=== PATIENT | male | born 1950 | race Caucasian/White ===

== ENCOUNTER → 2016-03-09 | Outpatient (CLI) | payer MEDICARE, MEDICAID ==
[~2016-03-09] MED LIST: ASPIRIN81 M1 PO; COUMADIN5 MG PO; DILTIAZEM CD120 MG PO; DIOVAN160 MG PO; DO NOT PROFILE T1 EA; HYDROCODONE BIT1 T11 PO; HYDRODIURIL25 MG PO; LANOXIN0.25 MG PO; LASIX40 MG PO; METOPROLOL SR100 MG PO; NEURONTIN300 MG PO; OYSTER SHELL C500 MG PO; POTASSIUM CHLO20 MEQ PO; XOPENEX HF0.045 MG/A INH
[2016-03-09 13:13] LABS: BASO # 0.1 10*3/uL (0.0-0.1); BASO % 1.2 % (0.0-1.0); EOS # 0.1 10*3/uL (0.0-0.4); EOS % 1.2 % (1.0-4.0); HEMATOCRIT 51.7 % (42.0-52.0); HEMOGLOBIN 17.3 g/dl (14.0-18.0); IG # 0.1 10*3/uL (0.0-0.1); LYMPH # 2.2 10*3/uL (1.3-4.4); LYMPH % 25.6 % (27.0-41.0); MEAN CELL VOLUME 94.2 fl (80.0-94.0); MEAN CORPUSCULAR HGB 31.5 pg (27.0-31.0); MEAN CORPUSCULAR HGB CONC 33.5 g/dl (33.0-37.0); MEAN PLATELET VOLUME 10.1 fl (9.6-12.3); MONO # 1.1 10*3/uL (0.1-1.0); MONO % 12.6 % (3.0-9.0); NEUT # 4.9 10*3/uL (2.3-7.9); NEUT % 57.8 % (47.0-73.0); PLATELET COUNT AUTOMATED 171 10*3/uL (130-400); RED BLOOD COUNT 5.49 10*6/uL (4.50-5.90); RED CELL DISTRI WIDTH 14.3 % (0-14.5); WHITE BLOOD COUNT 8.5 10*3/uL (4.8-10.8)
[2016-03-09 13:39] LABS: ALBUMIN 3.5 gm/dl (3.1-4.5); ALKALINE PHOSPHATASE 56 U/L (45-117); BILIRUBIN, TOTAL 0.5 mg/dl (0.2-1.0); BUN 8 mg/dl (7-24); CARBON DIOXIDE 31 mmol/L (21-32); CHLORIDE 101 mmol/L (98-107); EST GLOM FILT AFRICAN AMERICAN > 60 ml/min; GLUCOSE 105 mg/dL (65-99); POTASSIUM 4.6 mmol/L (3.5-5.1); SGOT/AST 15 IU/L (3-35); SGPT/ALT 27 U/L (12-78); SODIUM 139 mmol/L (136-145); TOTAL PROTEIN 7.2 gm/dL (6.4-8.2)
[2016-03-09 14:06] LABS: HEMOGLOBIN A1c 6.6 % (4.8-5.6)
== END | disposition home or self-care (01) ==
LOC: LAB 12:35 → US 13:30
PROVIDERS: Physician Assistant
DX: M25.562 Pain in left knee (principal); I87.8 Other specified disorders of veins; R73.9 Hyperglycemia, unspecified

== ENCOUNTER → 2016-12-24 | Outpatient (CLI) | payer MEDICARE, MEDICAID | END | disposition home or self-care (01) | LOC: RAD 17:09 | DX: R91.8 Other nonspecific abnormal finding of lung field (principal); J44.1 Chronic obstructive pulmonary disease with (acute) exacerbation ==

== ENCOUNTER → 2017-06-15 | Outpatient (CLI) | payer MEDICARE, MEDICAID | END | disposition home or self-care (01) | LOC: RAD 18:22 | DX: M17.0 Bilateral primary osteoarthritis of knee (principal); M25.552 Pain in left hip ==

== ENCOUNTER → 2017-11-10 | Outpatient (CLI) | payer MEDICARE, MEDICAID | END | disposition home or self-care (01) | LOC: RAD 14:18 | DX: M19.011 Primary osteoarthritis, right shoulder (principal) ==

== ENCOUNTER 2018-12-27 19:04 | Emergency (ER) | payer MEDICARE, MEDICAID ==
[~2018-12-27] VITALS: Ht 185.4 cm; Wt 127.0 kg
[2018-12-27 19:32] LABS: BASO # 0.1 10*3/uL (0.0-0.1); BASO % 0.8 % (0.0-1.0); EOS # 0.1 10*3/uL (0.0-0.4); EOS % 0.9 % (1.0-4.0); HEMATOCRIT 48.4 % (42.0-52.0); LYMPH # 1.6 10*3/uL (1.3-4.4); LYMPH % 14.2 % (27.0-41.0); MEAN CELL VOLUME 93.3 fl (80.0-94.0); MEAN CORPUSCULAR HGB 30.8 pg (27.0-31.0); MEAN CORPUSCULAR HGB CONC 33.1 g/dl (33.0-37.0); MEAN PLATELET VOLUME 9.9 fl (9.6-12.3); MONO # 1.3 10*3/uL (0.1-1.0); MONO % 11.1 % (3.0-9.0); NEUT # 8.2 10*3/uL (2.3-7.9); NEUT % 71.3 % (47.0-73.0); PLATELET COUNT AUTOMATED 260 10*3/uL (130-400); RED BLOOD COUNT 5.19 10*6/uL (4.50-5.90); RED CELL DISTRI WIDTH 14.8 % (0-14.5); WHITE BLOOD COUNT 11.4 10*3/uL (4.8-10.8)
[2018-12-27 19:43] LABS: ACT PARTIAL THROMBO TIME 27.8 SECONDS (20.0-32.1); INTERNATIONAL NORM RATIO 1.2 (2.0-3.5)
[2018-12-27 19:57] LABS: ALBUMIN 3.6 gm/dl (3.1-4.5); ALKALINE PHOSPHATASE 64 U/L (45-117); BUN 20 mg/dl (7-24); CHLORIDE 93 mmol/L (98-107); CREATININE 1.23 mg/dL (0.70-1.30); POTASSIUM 3.6 mmol/L (3.5-5.1); SGOT/AST 64 IU/L (3-35); SGPT/ALT 78 U/L (12-78); SODIUM 133 mmol/L (136-145)
[2018-12-27] MEDS ORDERED: AUGMENTIN 875875 MG PO (20:34)
== END 2018-12-27 20:40 | disposition home or self-care (01) ==
LOC: ED 19:04
PROVIDERS: Physician Assistant
DX: R04.0 Epistaxis (principal); I48.91 Unspecified atrial fibrillation; I10 Essential (primary) hypertension; F17.200 Nicotine dependence, unspecified, uncomplicated; Z79.899 Other long term (current) drug therapy; Z79.82 Long term (current) use of aspirin; Z79.01 Long term (current) use of anticoagulants

== ENCOUNTER 2019-03-08 19:22 | Emergency (ER) | payer MEDICARE, MEDICAID ==
[~2019-03-08] VITALS: Ht 185.4 cm; Wt 130.6 kg
[~2019-03-08 19:22] MED LIST changes: +AUGMENTIN 875875 MG PO; -COUMADIN5 MG PO; +Coumadin5 MG PO; -METOPROLOL SR100 MG PO; +METOPROLOL SUCC50 M2 PO
[2019-03-08] MEDS ORDERED: TOPIRAMATE25 M3 PO (19:35)
[2019-03-08] MEDS ORDERED: PRIMIDONE250 MG PO (19:38)
[2019-03-08 20:04] LABS: BASO # 0.1 10*3/uL (0.0-0.1); BASO % 0.7 % (0.0-1.0); EOS # 0.2 10*3/uL (0.0-0.4); EOS % 2.1 % (1.0-4.0); HEMATOCRIT 49.2 % (42.0-52.0); LYMPH # 1.8 10*3/uL (1.3-4.4); LYMPH % 18.4 % (27.0-41.0); MEAN CELL VOLUME 90.6 fl (80.0-94.0); MEAN CORPUSCULAR HGB 29.5 pg (27.0-31.0); MEAN CORPUSCULAR HGB CONC 32.5 g/dl (33.0-37.0); MEAN PLATELET VOLUME 10.5 fl (9.6-12.3); MONO # 0.9 10*3/uL (0.1-1.0); MONO % 8.7 % (3.0-9.0); NEUT # 6.9 10*3/uL (2.3-7.9); NEUT % 69.2 % (47.0-73.0); PLATELET COUNT AUTOMATED 249 10*3/uL (130-400); RED BLOOD COUNT 5.43 10*6/uL (4.50-5.90); RED CELL DISTRI WIDTH 15.2 % (0-14.5)
[2019-03-08 20:15] LABS: ACT PARTIAL THROMBO TIME 34.6 SECONDS (20.0-32.1); INTERNATIONAL NORM RATIO 1.5 (2.0-3.5)
[2019-03-08 20:25] LABS: ALBUMIN 3.5 gm/dl (3.1-4.5); ALKALINE PHOSPHATASE 84 U/L (45-117); BUN 22 mg/dl (7-24); CHLORIDE 95 mmol/L (98-107); CREATININE 1.27 mg/dL (0.70-1.30); FREE T4 0.99 ng/dl (0.76-1.46); POTASSIUM 3.3 mmol/L (3.5-5.1); SGOT/AST 21 IU/L (3-35); SGPT/ALT 40 U/L (12-78); SODIUM 136 mmol/L (136-145)
[2019-03-08 20:28] LABS: TROPONIN I < 0.015 ng/ml (<0.045)
[2019-03-08 21:52] LABS: BILIRUBIN NEGATIVE (NEGATIVE); BLOOD NEGATIVE (NEGATIVE); CLARITY CLEAR (CLEAR); COLOR YELLOW (YELLOW); GLUCOSE 2+ (NEGATIVE); KETONE NEGATIVE (NEGATIVE); LEUKO ESTERASE NEGATIVE (NEGATIVE); NITRITE NEGATIVE (NEGATIVE)
[2019-03-08 21:56] LABS: URINE AMPHETAMINES < 1000 (1000ng/ml); URINE BARBITURATES > 200 (200ng/ml); URINE BENZODIAZEPINES < 200 (200ng/ml); URINE CANNABINOIDS (THC) < 50 (50ng/ml); URINE COCAINE < 300 (300ng/ml); URINE METHADONE < 300 (300ng/ml); URINE OPIATES < 300 (300ng/ml)
[2019-03-08 21:59] LABS: BACTERIA TRACE; RBC 0-2 rbc/hpf (0-2)
[2019-03-08 22:00] LABS: URINE PHENCYCLIDINE < 25 (25ng/ml)
== END 2019-03-09 01:30 | disposition short-term general hospital (02) ==
LOC: ED 19:22
PROVIDERS: Emergency Medicine
DX: R41.82 Altered mental status, unspecified (principal); R53.1 Weakness; I10 Essential (primary) hypertension; F17.200 Nicotine dependence, unspecified, uncomplicated; Z79.899 Other long term (current) drug therapy; Z79.01 Long term (current) use of anticoagulants; Z79.82 Long term (current) use of aspirin

== ENCOUNTER → 2019-12-22 | Outpatient (CLI) | payer MEDICARE ==
[~2019-12-22] MED LIST changes: +PRIMIDONE250 MG PO; +TOPIRAMATE25 M3 PO
[2019-12-22 14:05] LABS: BASO # 0.1 10*3/uL (0.0-0.1); BASO % 1.1 % (0.0-1.0); EOS # 0.2 10*3/uL (0.0-0.4); EOS % 1.9 % (1.0-4.0); LYMPH # 2.3 10*3/uL (1.3-4.4); LYMPH % 22.1 % (27.0-41.0); MEAN CELL VOLUME 88.7 fl (80.0-94.0); MEAN CORPUSCULAR HGB 27.9 pg (27.0-31.0); MEAN CORPUSCULAR HGB CONC 31.5 g/dl (33.0-37.0); MEAN PLATELET VOLUME 9.9 fl (9.6-12.3); MONO # 1.3 10*3/uL (0.1-1.0); MONO % 12.2 % (3.0-9.0); NEUT # 6.4 10*3/uL (2.3-7.9); NEUT % 61.3 % (47.0-73.0); PLATELET COUNT AUTOMATED 230 10*3/uL (130-400); RED BLOOD COUNT 4.62 10*6/uL (4.50-5.90); RED CELL DISTRI WIDTH 15.9 % (0-14.5); WHITE BLOOD COUNT 10.4 10*3/uL (4.8-10.8)
[2019-12-22 14:10] LABS: BILIRUBIN Negative (Negative); BLOOD Negative (Negative); CLARITY Clear (Clear); COLOR Yellow (Yellow); GLUCOSE 3+ (Negative); KETONE Negative (Negative); LEUKO ESTERASE Negative (Negative); NITRITE Negative (Negative)
[2019-12-22 14:21] LABS: RBC 0-2 rbc/hpf (0-2); WBC 0-2 wbc/hpf (0-5)
[2019-12-22 14:26] LABS: ALBUMIN 3.6 gm/dl (3.1-4.5); CREATININE 1.45 mg/dL (0.70-1.30); POTASSIUM 3.8 mmol/L (3.5-5.1); TOTAL PROTEIN 7.9 gm/dL (6.4-8.2)
== END | disposition home or self-care (01) ==
LOC: LAB 12:53 → US 13:00
PROVIDERS: ATTEND Internal Medicine Nephrology
DX: N28.1 Cyst of kidney, acquired (principal); R63.4 Abnormal weight loss

== ENCOUNTER → 2020-04-30 | Outpatient (CLI) | payer MEDICARE ==
[2020-04-30 09:43] LABS: ALBUMIN 3.4 gm/dl (3.1-4.5); CREATININE 1.53 mg/dL (0.70-1.30); POTASSIUM 3.3 mmol/L (3.5-5.1); TOTAL PROTEIN 7.7 gm/dL (6.4-8.2)
== END | disposition home or self-care (01) ==
LOC: LAB 09:12
PROVIDERS: ATTEND Internal Medicine
DX: I48.91 Unspecified atrial fibrillation (principal)

== ENCOUNTER 2020-10-28 23:11 | Inpatient (IN) | payer MEDICARE ==
[~2020-10-28] VITALS: Ht 180.3 cm; Wt 107.6 kg
[2020-10-28 23:41] LABS: BASO % 0.1 % (0.0-1.0); EOS # 0.2 10*3/uL (0.0-0.4); EOS % 0.9 % (1.0-4.0); HEMATOCRIT 36.5 % (42.0-52.0); LYMPH # 0.5 10*3/uL (1.3-4.4); LYMPH % 2.2 % (27.0-41.0); MEAN CELL VOLUME 84.9 fl (80.0-94.0); MEAN CORPUSCULAR HGB 26.7 pg (27.0-31.0); MEAN CORPUSCULAR HGB CONC 31.5 g/dl (33.0-37.0); MEAN PLATELET VOLUME 9.9 fl (9.6-12.3); MONO # 1.5 10*3/uL (0.1-1.0); MONO % 7.2 % (3.0-9.0); NEUT # 18.1 10*3/uL (2.3-7.9); PLATELET COUNT AUTOMATED 326 10*3/uL (130-400); RED CELL DISTRI WIDTH 15.6 % (0-14.5); WHITE BLOOD COUNT 20.3 10*3/uL (4.8-10.8)
[2020-10-28 23:48] VITALS: BP 87/39
[2020-10-29 00:03] LABS: ALBUMIN 3.4 gm/dl (3.1-4.5); CREATININE 5.56 mg/dL (0.70-1.30); POTASSIUM 4.1 mmol/L (3.5-5.1); TOTAL PROTEIN 7.7 gm/dL (6.4-8.2)
[2020-10-29] MEDS ORDERED: GABAPENTIN400 MG PO (00:04)
[2020-10-29] MEDS ORDERED: ALDACTONE25 MG PO (00:04)
[2020-10-29] MEDS ORDERED: JARDIANCE25 MG PO (00:05)
[2020-10-29] MEDS ORDERED: DULOXETINE HCL30 MG PO (00:06)
[2020-10-29] MEDS ORDERED: DIGOXIN125 MCG PO (00:06)
[2020-10-29] MEDS ORDERED: TOPIRAMATE100 M2 PO (00:06)
[2020-10-29] MEDS ORDERED: OMEPRAZOLE40 MG PO (00:09)
[2020-10-29] MEDS ORDERED: ATORVASTATIN CA20 M1 PO (00:09)
[2020-10-29 00:10] VITALS: BP 104/46
[2020-10-29] MEDS ORDERED: JENTADUETO 2.51 EAC2 PO (00:10)
[2020-10-29 01:49] LABS: BILIRUBIN Negative (Negative); BLOOD 2+ (Negative); CLARITY Clear (Clear); COLOR Yellow (Yellow); GLUCOSE 2+ (Negative); KETONE Negative (Negative); LEUKO ESTERASE Negative (Negative); NITRITE Negative (Negative); SPECIFIC GRAVITY 1.015 (1.001-1.030); UROBILINOGEN 0.2 E.U./dl (0.0-1.0)
[2020-10-29 02:01] LABS: BACTERIA 2+; RBC 21-30 rbc/hpf (0-2)
[2020-10-29 03:00] VITALS: BP 122/56
[2020-10-29 04:38] LABS: HEMATOCRIT 34.7 % (42.0-52.0); MEAN CORPUSCULAR HGB 26.7 pg (27.0-31.0); MEAN CORPUSCULAR HGB CONC 31.4 g/dl (33.0-37.0); PLATELET COUNT AUTOMATED 286 10*3/uL (130-400); RED BLOOD COUNT 4.08 10*6/uL (4.50-5.90); RED CELL DISTRI WIDTH 15.5 % (0-14.5); WHITE BLOOD COUNT 17.4 10*3/uL (4.8-10.8)
[2020-10-29 04:51] LABS: ACT PARTIAL THROMBO TIME 47.8 SECONDS (20.0-32.1); INTERNATIONAL NORM RATIO 2.7 (2.0-3.5)
[2020-10-29 04:54] LABS: ALBUMIN 3.4 gm/dl (3.1-4.5); CREATININE 5.27 mg/dL (0.70-1.30); POTASSIUM 3.7 mmol/L (3.5-5.1); TOTAL PROTEIN 7.6 gm/dL (6.4-8.2)
[2020-10-29 05:01] LABS: THYROID STIM HORMONE (HS) 0.714 uIU/ml (0.358-4.75)
[2020-10-29] MEDS ORDERED: WARFARIN SOD5 MG PO (05:04)
[2020-10-29 05:39] LABS: ARTERIAL BLOOD GAS PH 7.33 (7.35-7.45)
[2020-10-29 05:40] LABS: ABG BASE EXCESS -8.5 mmol/L (-2.0-2.0)
[2020-10-29 05:58] VITALS: BP 105/66
[2020-10-29 06:51] VITALS: BP 95/62
[2020-10-29 07:24] LABS: PLATELET SUFFICIENCY NORMAL (NORMAL); TOTAL CELLS COUNTED 100 #CELLS
[2020-10-29 09:39] LABS: VITAMIN D, 25-HYDROXY 11.5 ng/mL (30-100)
[2020-10-29 10:42] LABS: ARTERIAL BLOOD GAS PH 7.386 (7.35-7.45)
[2020-10-29 10:44] LABS: ABG BASE EXCESS -7.5 mmol/L (-2.0-2.0)
[2020-10-29 13:29] LABS: URINE CREATININE RANDOM 52.4 mg/dL
[2020-10-29 13:50] LABS: ALBUMIN 3.3 gm/dl (3.1-4.5); POTASSIUM 2.9 mmol/L (3.5-5.1); TOTAL PROTEIN 7.7 gm/dL (6.4-8.2)
[2020-10-29 18:13] VITALS: BP 165/66
[2020-10-30] VITALS (7 sets, daily range): BP systolic 127–157; BP diastolic 57–85
[2020-10-30 01:20] LABS: CREATININE 2.77 mg/dL (0.70-1.30); POTASSIUM 3.6 mmol/L (3.5-5.1)
[2020-10-30 05:28] LABS: ALBUMIN 3.1 gm/dl (3.1-4.5); CREATININE 2.36 mg/dL (0.70-1.30); POTASSIUM 2.9 mmol/L (3.5-5.1); TOTAL PROTEIN 7.5 gm/dL (6.4-8.2)
[2020-10-30 06:19] LABS: BASO % 0.2 % (0.0-1.0); EOS % 0.1 % (1.0-4.0); HEMATOCRIT 33.3 % (42.0-52.0); LYMPH # 0.7 10*3/uL (1.3-4.4); LYMPH % 5.8 % (27.0-41.0); MEAN CELL VOLUME 83.5 fl (80.0-94.0); MEAN CORPUSCULAR HGB 26.8 pg (27.0-31.0); MEAN CORPUSCULAR HGB CONC 32.1 g/dl (33.0-37.0); MEAN PLATELET VOLUME 10.5 fl (9.6-12.3); MONO # 1.4 10*3/uL (0.1-1.0); MONO % 11.2 % (3.0-9.0); NEUT # 10.2 10*3/uL (2.3-7.9); NEUT % 80.7 % (47.0-73.0); PLATELET COUNT AUTOMATED 253 10*3/uL (130-400); RED BLOOD COUNT 3.99 10*6/uL (4.50-5.90); RED CELL DISTRI WIDTH 15.2 % (0-14.5); WHITE BLOOD COUNT 12.6 10*3/uL (4.8-10.8)
[2020-10-30 08:27] LABS: ABG BASE EXCESS -0.8 mmol/L (-2.0-2.0); ARTERIAL BLOOD GAS PH 7.455 (7.35-7.45); ARTERIAL BLOOD GAS PO2 77.2 (80-90)
[2020-10-31] VITALS: BP 153/70
[2020-10-31 07:55] LABS: HEMATOCRIT 36.2 % (42.0-52.0); MEAN CELL VOLUME 84.4 fl (80.0-94.0); MEAN CORPUSCULAR HGB 26.3 pg (27.0-31.0); MEAN CORPUSCULAR HGB CONC 31.2 g/dl (33.0-37.0); MEAN PLATELET VOLUME 9.7 fl (9.6-12.3); PLATELET COUNT AUTOMATED 314 10*3/uL (130-400); RED BLOOD COUNT 4.29 10*6/uL (4.50-5.90); RED CELL DISTRI WIDTH 15.2 % (0-14.5); WHITE BLOOD COUNT 17.8 10*3/uL (4.8-10.8)
[2020-10-31 08:00] VITALS: BP 134/70
[2020-10-31 08:08] LABS: CREATININE 1.46 mg/dL (0.70-1.30); POTASSIUM 3.1 mmol/L (3.5-5.1); TOTAL PROTEIN 7.6 gm/dL (6.4-8.2)
[2020-10-31 08:15] LABS: INTERNATIONAL NORM RATIO 1.7 (2.0-3.5)
[2020-10-31 08:46] LABS: PLATELET SUFFICIENCY NORMAL (NORMAL); TOTAL CELLS COUNTED 100 #CELLS
[2020-10-31 11:07] LABS: CREATININE,URINE 42.1 mg/dL (Not Estab.)
[2020-10-31 12:00] VITALS: BP 115/63
[2020-10-31 16:00] VITALS: BP 121/67
[2020-10-31 20:00] VITALS: BP 150/56
[2020-11-01] VITALS: BP 127/46
[2020-11-01 06:25] LABS: MEAN CELL VOLUME 85.3 fl (80.0-94.0); MEAN CORPUSCULAR HGB 26.7 pg (27.0-31.0); MEAN CORPUSCULAR HGB CONC 31.4 g/dl (33.0-37.0); MEAN PLATELET VOLUME 9.8 fl (9.6-12.3); NUCLEATED RED BLOOD CELL 0.1 % (0.0-0.0); PLATELET COUNT AUTOMATED 287 10*3/uL (130-400); RED BLOOD COUNT 4.34 10*6/uL (4.50-5.90); RED CELL DISTRI WIDTH 15.2 % (0-14.5); WHITE BLOOD COUNT 14.7 10*3/uL (4.8-10.8)
[2020-11-01 06:35] LABS: ALBUMIN 2.8 gm/dl (3.1-4.5); CHLORIDE 108 mmol/L (98-107); POTASSIUM 3.3 mmol/L (3.5-5.1); SGOT/AST 39 IU/L (3-35); SGPT/ALT 32 U/L (12-78); SODIUM 140 mmol/L (136-145)
[2020-11-01 06:38] LABS: ALKALINE PHOSPHATASE 56 U/L (45-117); CPK 400 U/L (39-308); CREATININE 1.21 mg/dL (0.70-1.30); TOTAL PROTEIN 7.3 gm/dL (6.4-8.2)
[2020-11-01 06:45] LABS: BUN 32 mg/dl (7-24)
[2020-11-01 06:47] LABS: INTERNATIONAL NORM RATIO 1.9 (2.0-3.5)
[2020-11-01 07:19] LABS: PLATELET SUFFICIENCY NORMAL (NORMAL); TOTAL CELLS COUNTED 100 #CELLS
[2020-11-01 08:00] VITALS: BP 136/70
[2020-11-01 12:00] VITALS: BP 106/77
[2020-11-01 16:00] VITALS: BP 140/80
[2020-11-01 20:00] VITALS: BP 137/72
[2020-11-02] VITALS: BP 145/74
[2020-11-02 06:59] LABS: INTERNATIONAL NORM RATIO 2.5 (2.0-3.5)
[2020-11-02 08:00] VITALS: BP 128/70
[2020-11-02 08:02] LABS: HEMATOCRIT 36.8 % (42.0-52.0); MEAN CELL VOLUME 87.2 fl (80.0-94.0); MEAN CORPUSCULAR HGB 26.5 pg (27.0-31.0); MEAN CORPUSCULAR HGB CONC 30.4 g/dl (33.0-37.0); MEAN PLATELET VOLUME 9.1 fl (9.6-12.3); NUCLEATED RED BLOOD CELL 0.1 % (0.0-0.0); PLATELET COUNT AUTOMATED 258 10*3/uL (130-400); RED BLOOD COUNT 4.22 10*6/uL (4.50-5.90); RED CELL DISTRI WIDTH 15.6 % (0-14.5); WHITE BLOOD COUNT 19.5 10*3/uL (4.8-10.8)
[2020-11-02 08:27] LABS: ALBUMIN 2.8 gm/dl (3.1-4.5); ALKALINE PHOSPHATASE 55 U/L (45-117); BUN 29 mg/dl (7-24); CHLORIDE 111 mmol/L (98-107); CREATININE 1.25 mg/dL (0.70-1.30); POTASSIUM 3.6 mmol/L (3.5-5.1); SGOT/AST 26 IU/L (3-35); SGPT/ALT 33 U/L (12-78); SODIUM 142 mmol/L (136-145); TOTAL PROTEIN 7.3 gm/dL (6.4-8.2)
[2020-11-02 09:04] LABS: PLATELET SUFFICIENCY NORMAL (NORMAL); TOTAL CELLS COUNTED 100 #CELLS
[2020-11-02 12:00] VITALS: BP 132/72
[2020-11-02 16:00] VITALS: BP 132/72; BP 133/99
[2020-11-02 20:00] VITALS: BP 123/54
[2020-11-03] VITALS: BP 110/57
[2020-11-03 06:08] LABS: BUN 28 mg/dl (7-24); CHLORIDE 111 mmol/L (98-107); CREATININE 1.17 mg/dL (0.70-1.30); POTASSIUM 3.6 mmol/L (3.5-5.1); SODIUM 139 mmol/L (136-145)
[2020-11-03 06:11] LABS: HEMATOCRIT 35.2 % (42.0-52.0); MEAN CELL VOLUME 87.6 fl (80.0-94.0); MEAN CORPUSCULAR HGB 26.9 pg (27.0-31.0); MEAN CORPUSCULAR HGB CONC 30.7 g/dl (33.0-37.0); MEAN PLATELET VOLUME 9.5 fl (9.6-12.3); NUCLEATED RED BLOOD CELL 0.1 % (0.0-0.0); PLATELET COUNT AUTOMATED 266 10*3/uL (130-400); RED BLOOD COUNT 4.02 10*6/uL (4.50-5.90); RED CELL DISTRI WIDTH 15.8 % (0-14.5); WHITE BLOOD COUNT 21.3 10*3/uL (4.8-10.8)
[2020-11-03 08:00] VITALS: BP 124/70
[2020-11-03 08:05] LABS: PLATELET SUFFICIENCY NORMAL (NORMAL); TOTAL CELLS COUNTED 100 #CELLS
[2020-11-03 12:00] VITALS: BP 120/90
[2020-11-03 16:00] VITALS: BP 145/75
[2020-11-03 20:00] VITALS: BP 132/76
[2020-11-04 06:52] LABS: HEMATOCRIT 35.2 % (42.0-52.0); MEAN CELL VOLUME 88.7 fl (80.0-94.0); MEAN CORPUSCULAR HGB 26.4 pg (27.0-31.0); MEAN CORPUSCULAR HGB CONC 29.8 g/dl (33.0-37.0); MEAN PLATELET VOLUME 9.4 fl (9.6-12.3); PLATELET COUNT AUTOMATED 242 10*3/uL (130-400); RED BLOOD COUNT 3.97 10*6/uL (4.50-5.90); RED CELL DISTRI WIDTH 15.8 % (0-14.5); WHITE BLOOD COUNT 17.7 10*3/uL (4.8-10.8)
[2020-11-04 07:08] LABS: INTERNATIONAL NORM RATIO 3.1 (2.0-3.5)
[2020-11-04 07:09] LABS: ALBUMIN 2.4 gm/dl (3.1-4.5); BUN 24 mg/dl (7-24); CHLORIDE 111 mmol/L (98-107); POTASSIUM 3.6 mmol/L (3.5-5.1); SGOT/AST 14 IU/L (3-35); SGPT/ALT 29 U/L (12-78); SODIUM 140 mmol/L (136-145); TOTAL PROTEIN 6.6 gm/dL (6.4-8.2)
[2020-11-04 07:11] LABS: ALKALINE PHOSPHATASE 48 U/L (45-117); CREATININE 1.07 mg/dL (0.70-1.30)
[2020-11-04 08:00] VITALS: BP 114/67
[2020-11-04 08:30] LABS: PLATELET SUFFICIENCY NORMAL (NORMAL); TOTAL CELLS COUNTED 100 #CELLS
[2020-11-04 12:00] VITALS: BP 127/72
[2020-11-04 16:00] VITALS: BP 120/68
[2020-11-04 20:00] VITALS: BP 134/65
[2020-11-05] VITALS: BP 139/70
[2020-11-05 06:39] LABS: BUN 20 mg/dl (7-24); CHLORIDE 112 mmol/L (98-107); CREATININE 1.08 mg/dL (0.70-1.30); POTASSIUM 3.9 mmol/L (3.5-5.1); SODIUM 140 mmol/L (136-145)
[2020-11-05 06:51] LABS: HEMATOCRIT 34.3 % (42.0-52.0); MEAN CELL VOLUME 87.9 fl (80.0-94.0); MEAN CORPUSCULAR HGB 26.7 pg (27.0-31.0); MEAN CORPUSCULAR HGB CONC 30.3 g/dl (33.0-37.0); MEAN PLATELET VOLUME 9.7 fl (9.6-12.3); PLATELET COUNT AUTOMATED 254 10*3/uL (130-400); WHITE BLOOD COUNT 13.8 10*3/uL (4.8-10.8)
[2020-11-05 07:45] LABS: PLATELET SUFFICIENCY NORMAL (NORMAL); TOTAL CELLS COUNTED 100 #CELLS
[2020-11-05 07:54] LABS: INTERNATIONAL NORM RATIO 2.7 (2.0-3.5)
[2020-11-05 08:00] VITALS: BP 128/65
[2020-11-05 12:00] VITALS: BP 115/61
[2020-11-05 16:00] VITALS: BP 115/52
[2020-11-05] MEDS ORDERED: VIBRAMYCIN HYC100 MG PO (16:14)
== END 2020-11-05 18:12 | disposition home health service (06) | DRG 871 ==
LOC: ED 23:11 → 4E 10-29 04:07 → EDHOLD 10-29 04:07 → 4E 10-30 13:54
PROVIDERS: Hospitalist; Internal Medicine; Internal Medicine Critical Care Medicine; Internal Medicine Nephrology; ADMIT Internal Medicine; ATTEND Internal Medicine
PROC: 5A09357 Assistance with Respiratory Ventilation, Less than 24 Consecutive Hours, Continuous Positive Airway Pressure (ICD-10-PCS; principal; 2020-10-28)
DX: A41.89 Other specified sepsis (principal); J18.9 Pneumonia, unspecified organism; G93.41 Metabolic encephalopathy; J96.00 Acute respiratory failure, unspecified whether with hypoxia or hypercapnia; N17.0 Acute kidney failure with tubular necrosis; E87.2 Acidosis; E87.1 Hypo-osmolality and hyponatremia; N18.5 Chronic kidney disease, stage 5; I13.0 Hypertensive heart and chronic kidney disease with heart failure and stage 1 through stage 4 chronic kidney disease, or unspecified chronic kidney disease; M62.82 Rhabdomyolysis; I50.22 Chronic systolic (congestive) heart failure; R65.20 Severe sepsis without septic shock; Z20.822 Contact with and (suspected) exposure to COVID-19; K52.9 Noninfective gastroenteritis and colitis, unspecified; I45.10 Unspecified right bundle-branch block; I48.91 Unspecified atrial fibrillation; E11.22 Type 2 diabetes mellitus with diabetic chronic kidney disease; E11.65 Type 2 diabetes mellitus with hyperglycemia; D64.9 Anemia, unspecified; E83.41 Hypermagnesemia; E83.39 Other disorders of phosphorus metabolism; J44.9 Chronic obstructive pulmonary disease, unspecified; I48.0 Paroxysmal atrial fibrillation; E11.42 Type 2 diabetes mellitus with diabetic polyneuropathy; K21.9 Gastro-esophageal reflux disease without esophagitis; E87.6 Hypokalemia; Z68.34 Body mass index [BMI] 34.0-34.9, adult; Z79.82 Long term (current) use of aspirin; Z79.899 Other long term (current) drug therapy; Z79.01 Long term (current) use of anticoagulants

== ENCOUNTER 2021-03-05 15:20 | Inpatient (IN) | payer MEDICARE ==
[~2021-03-05] VITALS: Ht 180.3 cm; Wt 121.8 kg
[2021-03-05 15:20] VITALS: BP 117/68
[~2021-03-05 15:20] MED LIST changes: +ALDACTONE25 MG PO; +ATORVASTATIN CA20 M1 PO; +DIGOXIN125 MCG PO; +DULOXETINE HCL30 MG PO; +GABAPENTIN400 MG PO; +JARDIANCE25 MG PO; +JENTADUETO 2.51 EAC2 PO; +OMEPRAZOLE40 MG PO; +TOPIRAMATE100 M2 PO; +VIBRAMYCIN HYC100 MG PO; +WARFARIN SOD5 MG PO
[2021-03-05 15:46] LABS: MEAN CELL VOLUME 79.3 fl (80.0-94.0); MEAN CORPUSCULAR HGB 23.4 pg (27.0-31.0); MEAN CORPUSCULAR HGB CONC 29.5 g/dl (33.0-37.0); MEAN PLATELET VOLUME 9.2 fl (9.6-12.3); PLATELET COUNT AUTOMATED 295 10*3/uL (130-400); RED BLOOD COUNT 4.79 10*6/uL (4.50-5.90); RED CELL DISTRI WIDTH 18.8 % (0-14.5); WHITE BLOOD COUNT 11.5 10*3/uL (4.8-10.8)
[2021-03-05 15:57] LABS: ACT PARTIAL THROMBO TIME 33.3 SECONDS (20.0-32.1); INTERNATIONAL NORM RATIO 1.4 (2.0-3.5)
[2021-03-05 16:05] LABS: PLATELET SUFFICIENCY NORMAL (NORMAL); TOTAL CELLS COUNTED 100 #CELLS
[2021-03-05 16:09] LABS: ALBUMIN 3.6 gm/dl (3.1-4.5); CREATININE 1.49 mg/dL (0.70-1.30); POTASSIUM 3.9 mmol/L (3.5-5.1); TOTAL PROTEIN 8.2 gm/dL (6.4-8.2)
[2021-03-05 17:49] VITALS: BP 124/69
[2021-03-05 19:04] VITALS: BP 115/88
[2021-03-05 22:42] VITALS: BP 145/72
[2021-03-06] VITALS: BP 131/60
[2021-03-06 06:26] LABS: BASO % 0.2 % (0.0-1.0); HEMATOCRIT 38.5 % (42.0-52.0); LYMPH % 11.6 % (27.0-41.0); MEAN CELL VOLUME 77.8 fl (80.0-94.0); MEAN CORPUSCULAR HGB 25.9 pg (27.0-31.0); MEAN CORPUSCULAR HGB CONC 33.2 g/dl (33.0-37.0); MEAN PLATELET VOLUME 9.7 fl (9.6-12.3); MONO # 1.3 10*3/uL (0.1-1.0); NEUT # 6.1 10*3/uL (2.3-7.9); PLATELET COUNT AUTOMATED 276 10*3/uL (130-400); RED BLOOD COUNT 4.95 10*6/uL (4.50-5.90); RED CELL DISTRI WIDTH 18.8 % (0-14.5); WHITE BLOOD COUNT 8.4 10*3/uL (4.8-10.8)
[2021-03-06 06:43] LABS: INTERNATIONAL NORM RATIO 1.4 (2.0-3.5)
[2021-03-06 06:50] LABS: ALBUMIN 3.4 gm/dl (3.1-4.5); CREATININE 1.44 mg/dL (0.70-1.30); POTASSIUM 3.5 mmol/L (3.5-5.1); TOTAL PROTEIN 7.9 gm/dL (6.4-8.2)
[2021-03-06 06:56] LABS: FREE T4 0.83 ng/dl (0.76-1.46); THYROID STIM HORMONE (HS) 1.02 uIU/ml (0.358-4.75)
[2021-03-06 08:00] VITALS: BP 149/61
[2021-03-06 12:00] VITALS: BP 114/71
[2021-03-06] MEDS ORDERED: B-121000 MCG PO (13:14)
[2021-03-06] MEDS ORDERED: TRAZODONE50 MG PO (13:16)
[2021-03-06] MEDS ORDERED: MONTELUKAST SOD10 MG PO (13:16)
[2021-03-06] MEDS ORDERED: DONEPEZIL HCL10 MG PO (13:17)
[2021-03-06] MEDS ORDERED: HYDROXYZINE HCL25 MG PO (13:17)
[2021-03-06 16:00] VITALS: BP 156/75
[2021-03-06 20:00] VITALS: BP 134/84
[2021-03-07] VITALS: BP 104/79
[2021-03-07 06:43] LABS: BASO % 0.3 % (0.0-1.0); LYMPH # 1.7 10*3/uL (1.3-4.4); LYMPH % 21.5 % (27.0-41.0); MEAN CELL VOLUME 79.1 fl (80.0-94.0); MEAN CORPUSCULAR HGB 23.1 pg (27.0-31.0); MEAN CORPUSCULAR HGB CONC 29.3 g/dl (33.0-37.0); MEAN PLATELET VOLUME 10.2 fl (9.6-12.3); MONO # 1.1 10*3/uL (0.1-1.0); MONO % 14.4 % (3.0-9.0); NEUT # 4.9 10*3/uL (2.3-7.9); NEUT % 62.3 % (47.0-73.0); PLATELET COUNT AUTOMATED 289 10*3/uL (130-400); RED BLOOD COUNT 5.06 10*6/uL (4.50-5.90); RED CELL DISTRI WIDTH 19.1 % (0-14.5); WHITE BLOOD COUNT 7.9 10*3/uL (4.8-10.8)
[2021-03-07 06:51] LABS: ALBUMIN 3.1 gm/dl (3.1-4.5); ALKALINE PHOSPHATASE 74 U/L (45-117); BUN 29 mg/dl (7-24); CHLORIDE 111 mmol/L (98-107); CREATININE 1.37 mg/dL (0.70-1.30); POTASSIUM 3.4 mmol/L (3.5-5.1); SGOT/AST 48 IU/L (3-35); SGPT/ALT 27 U/L (12-78); SODIUM 142 mmol/L (136-145); TOTAL PROTEIN 7.5 gm/dL (6.4-8.2)
[2021-03-07 06:54] LABS: INTERNATIONAL NORM RATIO 1.4 (2.0-3.5)
[2021-03-07 08:00] VITALS: BP 169/156
[2021-03-07 10:44] VITALS: BP 120/72
[2021-03-07 12:00] VITALS: BP 140/113
[2021-03-07 20:00] VITALS: BP 126/68
[2021-03-08] VITALS: BP 110/75
[2021-03-08 05:24] LABS: ALKALINE PHOSPHATASE 76 U/L (45-117); BUN 33 mg/dl (7-24); CHLORIDE 111 mmol/L (98-107); CREATININE 1.39 mg/dL (0.70-1.30); LDH 205 U/L (87-241); SGOT/AST 33 IU/L (3-35); SGPT/ALT 31 U/L (12-78); SODIUM 141 mmol/L (136-145); TOTAL PROTEIN 7.1 gm/dL (6.4-8.2)
[2021-03-08 05:26] LABS: POTASSIUM 4.5 mmol/L (3.5-5.1)
[2021-03-08 06:13] LABS: BASO % 0.1 % (0.0-1.0); HEMATOCRIT 36.5 % (42.0-52.0); LYMPH # 0.8 10*3/uL (1.3-4.4); LYMPH % 11.5 % (27.0-41.0); MEAN CELL VOLUME 78.2 fl (80.0-94.0); MEAN CORPUSCULAR HGB 23.3 pg (27.0-31.0); MEAN CORPUSCULAR HGB CONC 29.9 g/dl (33.0-37.0); MEAN PLATELET VOLUME 10.2 fl (9.6-12.3); MONO # 0.7 10*3/uL (0.1-1.0); MONO % 9.7 % (3.0-9.0); NEUT # 5.5 10*3/uL (2.3-7.9); NEUT % 76.7 % (47.0-73.0); PLATELET COUNT AUTOMATED 269 10*3/uL (130-400); RED BLOOD COUNT 4.67 10*6/uL (4.50-5.90); RED CELL DISTRI WIDTH 18.6 % (0-14.5); WHITE BLOOD COUNT 7.1 10*3/uL (4.8-10.8)
[2021-03-08 06:29] LABS: INTERNATIONAL NORM RATIO 1.5 (2.0-3.5)
[2021-03-08 08:00] VITALS: BP 127/92
[2021-03-08 12:00] VITALS: BP 134/87
[2021-03-08 16:00] VITALS: BP 147/76
[2021-03-08 20:00] VITALS: BP 112/64
[2021-03-09] VITALS: BP 108/67
[2021-03-09 06:15] LABS: BASO % 0.3 % (0.0-1.0); HEMATOCRIT 37.3 % (42.0-52.0); LYMPH # 1.1 10*3/uL (1.3-4.4); LYMPH % 15.1 % (27.0-41.0); MEAN CELL VOLUME 78.9 fl (80.0-94.0); MEAN CORPUSCULAR HGB 22.8 pg (27.0-31.0); MEAN PLATELET VOLUME 10.2 fl (9.6-12.3); MONO # 0.7 10*3/uL (0.1-1.0); MONO % 10.3 % (3.0-9.0); NEUT # 5.1 10*3/uL (2.3-7.9); NEUT % 72.2 % (47.0-73.0); PLATELET COUNT AUTOMATED 274 10*3/uL (130-400); RED BLOOD COUNT 4.73 10*6/uL (4.50-5.90); RED CELL DISTRI WIDTH 18.6 % (0-14.5)
[2021-03-09 06:30] LABS: CHLORIDE 111 mmol/L (98-107); INTERNATIONAL NORM RATIO 1.7 (2.0-3.5); POTASSIUM 4.4 mmol/L (3.5-5.1); SODIUM 140 mmol/L (136-145)
[2021-03-09 06:36] LABS: ALKALINE PHOSPHATASE 82 U/L (45-117); BUN 35 mg/dl (7-24); CREATININE 1.32 mg/dL (0.70-1.30); LDH 211 U/L (87-241); SGOT/AST 34 IU/L (3-35); SGPT/ALT 42 U/L (12-78); TOTAL PROTEIN 7.1 gm/dL (6.4-8.2)
[2021-03-09 08:00] VITALS: BP 124/77
[2021-03-09 08:50] VITALS: BP 124/62
[2021-03-09] MEDS ORDERED: LEVOFLOXACIN500 MG PO (11:51)
[2021-03-09 12:00] VITALS: BP 112/71
[2021-03-09 16:00] VITALS: BP 125/62
[2021-03-09 20:00] VITALS: BP 105/70
[2021-03-10] VITALS: BP 119/85
[2021-03-10 06:23] LABS: BASO % 0.2 % (0.0-1.0); HEMATOCRIT 38.2 % (42.0-52.0); LYMPH # 1.1 10*3/uL (1.3-4.4); LYMPH % 12.1 % (27.0-41.0); MEAN CELL VOLUME 78.3 fl (80.0-94.0); MEAN CORPUSCULAR HGB 23.2 pg (27.0-31.0); MEAN CORPUSCULAR HGB CONC 29.6 g/dl (33.0-37.0); MEAN PLATELET VOLUME 10.1 fl (9.6-12.3); MONO # 0.6 10*3/uL (0.1-1.0); MONO % 6.5 % (3.0-9.0); NEUT # 7.3 10*3/uL (2.3-7.9); NEUT % 78.9 % (47.0-73.0); PLATELET COUNT AUTOMATED 291 10*3/uL (130-400); RED BLOOD COUNT 4.88 10*6/uL (4.50-5.90); RED CELL DISTRI WIDTH 18.8 % (0-14.5); WHITE BLOOD COUNT 9.3 10*3/uL (4.8-10.8)
[2021-03-10 06:25] LABS: CHLORIDE 112 mmol/L (98-107); POTASSIUM 4.2 mmol/L (3.5-5.1); SODIUM 139 mmol/L (136-145)
[2021-03-10 06:41] LABS: ALBUMIN 2.9 gm/dl (3.1-4.5); ALKALINE PHOSPHATASE 81 U/L (45-117); BUN 35 mg/dl (7-24); CREATININE 1.13 mg/dL (0.70-1.30); LDH 194 U/L (87-241); SGOT/AST 24 IU/L (3-35); SGPT/ALT 38 U/L (12-78); TOTAL PROTEIN 6.9 gm/dL (6.4-8.2)
[2021-03-10 08:00] VITALS: BP 128/87
[2021-03-10 12:00] VITALS: BP 116/67
[2021-03-10 16:00] VITALS: BP 129/71
[2021-03-10 20:00] VITALS: BP 131/75
[2021-03-11] VITALS: BP 121/76
[2021-03-11 06:01] LABS: BUN 37 mg/dl (7-24); CHLORIDE 112 mmol/L (98-107); CREATININE 1.22 mg/dL (0.70-1.30); SGOT/AST 15 IU/L (3-35); SGPT/ALT 40 U/L (12-78); SODIUM 141 mmol/L (136-145)
[2021-03-11 06:03] LABS: ALKALINE PHOSPHATASE 84 U/L (45-117); TOTAL PROTEIN 6.6 gm/dL (6.4-8.2)
[2021-03-11 06:44] LABS: HEMATOCRIT 38.5 % (42.0-52.0); MEAN CELL VOLUME 78.7 fl (80.0-94.0); MEAN CORPUSCULAR HGB 23.3 pg (27.0-31.0); MEAN CORPUSCULAR HGB CONC 29.6 g/dl (33.0-37.0); MEAN PLATELET VOLUME 10.3 fl (9.6-12.3); PLATELET COUNT AUTOMATED 301 10*3/uL (130-400); RED BLOOD COUNT 4.89 10*6/uL (4.50-5.90); RED CELL DISTRI WIDTH 18.8 % (0-14.5); WHITE BLOOD COUNT 11.3 10*3/uL (4.8-10.8)
[2021-03-11 07:54] LABS: MICROCYTOSIS SLIGHT; PLATELET SUFFICIENCY NORMAL (NORMAL); POLYCHROMASIA SLIGHT; TOTAL CELLS COUNTED 100 #CELLS
[2021-03-11 07:55] LABS: BURR CELLS FEW; OVALOCYTES FEW
[2021-03-11 08:00] VITALS: BP 109/52
[2021-03-11 12:00] VITALS: BP 110/61; BP 124/76
== END 2021-03-11 18:38 | disposition home health service (06) | DRG 871 ==
LOC: ED 15:20 → EDHOLD 17:33 → 4E 17:33
PROVIDERS: Emergency Medicine; Internal Medicine; Internal Medicine Critical Care Medicine; ADMIT Internal Medicine; ATTEND Internal Medicine
PROC: XW033E5 Introduction of Remdesivir Anti-infective into Peripheral Vein, Percutaneous Approach, New Technology Group 5 (ICD-10-PCS; principal; 2021-03-06)
DX: A41.9 Sepsis, unspecified organism (principal); U07.1 COVID-19; J12.82 Pneumonia due to coronavirus disease 2019; G93.41 Metabolic encephalopathy; I50.23 Acute on chronic systolic (congestive) heart failure; N17.0 Acute kidney failure with tubular necrosis; J44.1 Chronic obstructive pulmonary disease with (acute) exacerbation; J44.0 Chronic obstructive pulmonary disease with (acute) lower respiratory infection; G45.9 Transient cerebral ischemic attack, unspecified; E11.22 Type 2 diabetes mellitus with diabetic chronic kidney disease; N18.30 Chronic kidney disease, stage 3 unspecified; R26.2 Difficulty in walking, not elsewhere classified; I48.91 Unspecified atrial fibrillation; K21.9 Gastro-esophageal reflux disease without esophagitis; E87.6 Hypokalemia; E55.9 Vitamin D deficiency, unspecified; E66.01 Morbid (severe) obesity due to excess calories; Z79.82 Long term (current) use of aspirin; Z79.899 Other long term (current) drug therapy; Z79.01 Long term (current) use of anticoagulants; Z68.37 Body mass index [BMI] 37.0-37.9, adult

== ENCOUNTER 2021-09-23 17:56 | Emergency (ER) | payer MEDICARE ==
[~2021-09-23] VITALS: Ht 185.4 cm; Wt 108.9 kg
[~2021-09-23 17:56] MED LIST changes: +B-121000 MCG PO; +DONEPEZIL HCL10 MG PO; +DOXYCYCLINE HY100 M3 PO; +HYDROXYZINE HCL25 MG PO; +LEVOFLOXACIN500 MG PO; +MONTELUKAST SOD10 MG PO; +TRAZODONE50 MG PO
== END 2021-09-23 20:13 | disposition left against medical advice (07) ==
LOC: ED 17:56
DX: R60.0 Localized edema (principal); M25.561 Pain in right knee; Z53.29 Procedure and treatment not carried out because of patient's decision for other reasons; F17.200 Nicotine dependence, unspecified, uncomplicated; Z79.2 Long term (current) use of antibiotics; Z79.899 Other long term (current) drug therapy; Z79.01 Long term (current) use of anticoagulants; Z79.82 Long term (current) use of aspirin

== ENCOUNTER 2021-09-30 01:23 | Inpatient (IN) | payer MEDICARE ==
[~2021-09-30] VITALS: Ht 185.4 cm; Wt 102.3 kg
[2021-09-30 01:24] VITALS: BP 128/74
[2021-09-30 03:11] LABS: BASO # 0.1 10*3/uL (0.0-0.1); BASO % 0.6 % (0.0-1.0); EOS # 0.3 10*3/uL (0.0-0.4); EOS % 2.7 % (1.0-4.0); LYMPH # 1.2 10*3/uL (1.3-4.4); MEAN CELL VOLUME 76.8 fl (80.0-94.0); MEAN CORPUSCULAR HGB 22.3 pg (27.0-31.0); MEAN PLATELET VOLUME 9.3 fl (9.6-12.3); MONO # 1.2 10*3/uL (0.1-1.0); MONO % 9.7 % (3.0-9.0); NEUT # 9.2 10*3/uL (2.3-7.9); NEUT % 76.3 % (47.0-73.0); PLATELET COUNT AUTOMATED 274 10*3/uL (130-400); RED BLOOD COUNT 5.21 10*6/uL (4.50-5.90); RED CELL DISTRI WIDTH 19.7 % (0-14.5)
[2021-09-30 04:08] LABS: ALKALINE PHOSPHATASE 159 U/L (45-117); CHLORIDE 110 mmol/L (98-107); CREATININE 1.07 mg/dL (0.70-1.30); POTASSIUM 4.1 mmol/L (3.5-5.1); SGOT/AST 12 IU/L (3-35); SGPT/ALT 28 U/L (12-78); SODIUM 141 mmol/L (136-145); URIC ACID 3.9 mg/dL (3.5-7.2)
[2021-09-30 04:10] LABS: BUN 18 mg/dl (7-24)
[2021-09-30 11:37] VITALS: BP 134/78
[2021-09-30] MEDS ORDERED: AMITRIPTYLINE H10 M1 PO (11:56)
[2021-09-30] MEDS ORDERED: WARFARIN SODIUM5 MG PO (12:01)
[2021-09-30] MEDS ORDERED: TOPICORT 0.25%15 GM T (12:05)
[2021-09-30] MEDS ORDERED: HYDROCODONE-AC1 EAC2 PO (12:16)
[2021-09-30 12:54] LABS: INTERNATIONAL NORM RATIO 2.2 (2.0-3.5)
[2021-09-30 13:44] VITALS: BP 130/70
[2021-09-30 18:50] VITALS: BP 155/103
[2021-09-30 21:15] VITALS: BP 137/98
[2021-10-01] VITALS: BP 117/97
[2021-10-01 08:00] VITALS: BP 103/57
[2021-10-01 12:00] VITALS: BP 108/73
[2021-10-01 16:00] VITALS: BP 142/68
== END 2021-10-01 18:29 | disposition left against medical advice (07) | DRG 565 ==
LOC: ED 01:23 → EDHOLD 09:49 → 4E 09:49 → EDHOLD 20:53 → 4E 20:57
PROVIDERS: Emergency Medicine; ADMIT Internal Medicine; ATTEND Internal Medicine
DX: M25.461 Effusion, right knee (principal); I13.0 Hypertensive heart and chronic kidney disease with heart failure and stage 1 through stage 4 chronic kidney disease, or unspecified chronic kidney disease; I48.91 Unspecified atrial fibrillation; J44.9 Chronic obstructive pulmonary disease, unspecified; M25.561 Pain in right knee; E11.22 Type 2 diabetes mellitus with diabetic chronic kidney disease; N18.9 Chronic kidney disease, unspecified; I50.9 Heart failure, unspecified; K21.9 Gastro-esophageal reflux disease without esophagitis; E55.9 Vitamin D deficiency, unspecified; F03.90 Unspecified dementia, unspecified severity, without behavioral disturbance, psychotic disturbance, mood disturbance, and anxiety; Z53.29 Procedure and treatment not carried out because of patient's decision for other reasons

== ENCOUNTER 2021-12-17 20:35 | Emergency (ER) | payer MEDICARE ==
[~2021-12-17] VITALS: Ht 182.8 cm; Wt 108.9 kg
[~2021-12-17 20:35] MED LIST changes: +AMITRIPTYLINE H10 M1 PO; +HYDROCODONE-AC1 EAC2 PO; +TOPICORT 0.25%15 GM T; +WARFARIN SODIUM5 MG PO
[2021-12-17 21:07] LABS: BASO # 0.1 10*3/uL (0.0-0.1); BASO % 0.5 % (0.0-1.0); EOS # 0.1 10*3/uL (0.0-0.4); EOS % 1.2 % (1.0-4.0); HEMATOCRIT 32.1 % (42.0-52.0); LYMPH # 0.6 10*3/uL (1.3-4.4); LYMPH % 5.3 % (27.0-41.0); MEAN CELL VOLUME 77.5 fl (80.0-94.0); MEAN CORPUSCULAR HGB 22.5 pg (27.0-31.0); MEAN PLATELET VOLUME 10.6 fl (9.6-12.3); MONO % 8.7 % (3.0-9.0); NEUT # 9.2 10*3/uL (2.3-7.9); NEUT % 82.8 % (47.0-73.0); PLATELET COUNT AUTOMATED 172 10*3/uL (130-400); RED BLOOD COUNT 4.14 10*6/uL (4.50-5.90); RED CELL DISTRI WIDTH 18.2 % (0-14.5); WHITE BLOOD COUNT 11.2 10*3/uL (4.8-10.8)
[2021-12-17 21:24] LABS: ACT PARTIAL THROMBO TIME 38.2 SECONDS (20.0-32.1); INTERNATIONAL NORM RATIO 3.5 (2.0-3.5)
[2021-12-17 21:31] LABS: ALKALINE PHOSPHATASE 252 U/L (45-117); BUN 22 mg/dl (7-24); CHLORIDE 111 mmol/L (98-107); CPK 278 U/L (39-308); CREATININE 1.15 mg/dL (0.70-1.30); POTASSIUM 4.1 mmol/L (3.5-5.1); SGOT/AST 117 IU/L (3-35); SGPT/ALT 90 U/L (12-78); SODIUM 139 mmol/L (136-145); TOTAL PROTEIN 6.2 gm/dL (6.4-8.2)
[2021-12-17] MEDS ORDERED: ANTIBIOTIC28.4 GM T (22:27)
== END 2021-12-17 23:30 | disposition home or self-care (01) ==
LOC: ED 20:35
PROVIDERS: Family Medicine
DX: S00.81XA Abrasion of other part of head, initial encounter (principal); W07.XXXA Fall from chair, initial encounter; Y93.89 Activity, other specified; Y92.89 Other specified places as the place of occurrence of the external cause; Y99.8 Other external cause status

== ENCOUNTER 2021-12-26 18:58 | Emergency (ER) | payer MEDICARE ==
[~2021-12-26] VITALS: Wt 105.7 kg
[~2021-12-26 18:58] MED LIST changes: +ANTIBIOTIC28.4 GM T
[2021-12-26 19:27] LABS: HEMATOCRIT 21.4 % (42.0-52.0); MEAN CELL VOLUME 89.2 fl (80.0-94.0); MEAN CORPUSCULAR HGB 22.9 pg (27.0-31.0); MEAN CORPUSCULAR HGB CONC 25.7 g/dl (33.0-37.0); MEAN PLATELET VOLUME 10.5 fl (9.6-12.3); NUCLEATED RED BLOOD CELL 0.9 10*3/uL (0.0-0.0); NUCLEATED RED BLOOD CELL 2.7 % (0.0-0.0); PLATELET COUNT AUTOMATED 453 10*3/uL (130-400); RED CELL DISTRI WIDTH 18.6 % (0-14.5); WHITE BLOOD COUNT 33.5 10*3/uL (4.8-10.8)
[2021-12-26 19:43] LABS: CREATININE 1.98 mg/dL (0.70-1.30); TOTAL PROTEIN 5.2 gm/dL (6.4-8.2)
[2021-12-26 19:49] LABS: POTASSIUM 6.5 mmol/L (3.5-5.1)
[2021-12-26 19:50] LABS: MANUAL DIFF REFLEX YES
[2021-12-26 19:55] LABS: ATYPICAL LYMPHS 1 % (0-0); TOTAL CELLS COUNTED 100 #CELLS
[2021-12-26 19:56] LABS: MICROCYTOSIS MODERATE; PLATELET SUFFICIENCY HIGH (NORMAL); POLYCHROMASIA SLIGHT
[2021-12-26 19:57] LABS: BURR CELLS MODERATE; OVALOCYTES FEW
== END 2021-12-26 19:55 ==
LOC: ED 18:58
PROVIDERS: Internal Medicine
DX: I46.9 Cardiac arrest, cause unspecified (principal); Z79.899 Other long term (current) drug therapy; Z79.82 Long term (current) use of aspirin; Z90.49 Acquired absence of other specified parts of digestive tract